=== PATIENT | male | born 1955 | race Caucasian/White ===

== ENCOUNTER 2017-06-22 11:33 | Emergency (ER) | payer MEDICARE ==
[~2017-06-22 11:33] MED LIST: ABAC1TAB3 PO; CLIN150C14 PO; MUPI2OIN TOPICAL
[2017-06-22 11:35] VITALS: BP 131/69; PULSE 125; RESP 14; TEMP 98.4; O2SAT 100
[2017-06-22] MEDS ORDERED: TETANUS/DIPHTHERIA TOXOID ADULT 0.5 ML VIAL IM ONE (12:15)
[2017-06-22] MEDS ORDERED: ONDANSETRON HCL 4 MG/2 ML VIAL IV PUSH ONE (12:15)
[2017-06-22] MEDS ORDERED: MORPHINE SULFATE 4 MG/ML INJ IV PUSH ONE (12:15)
[2017-06-22] MEDS ORDERED: VANCOMYCIN INJ 1,000 MG in SODIUM CHLOR 0.9% 250 ML INJ 250 ML IV STA (12:26)
[2017-06-22] MEDS ORDERED: PIPERACIL-TAZO 4.5 GM PREMIX 100 ML IV STA (12:26)
--- NOTE | 2017-06-22 12:32 | PD ---
Physical Exam Date Seen by Provider: Jun 22, 2017 Narrative This patient presents with a large skin ulceration on his left lower leg. It just started a few days ago. Data Data Last Documented VS Vital Signs Date Time Temp Pulse Resp B/P (MAP) Pulse Ox O2 Delivery O2 Flow Rate FiO2 06/22/17 11:35 98.4 125 14 131/69 (89) 100 Room Air Orders Orders Complete Blood Count With Diff (06/22/17 12:09) Comprehensive Metabolic Panel (06/22/17 12:09) Lactic Acid Sepsis Protocol (06/22/17 12:09) Blood Culture (06/22/17 12:09) Iv Access Insert/Monitor (06/22/17 12:09) Wound Culture And Gram Stain (06/22/17 12:09) Morphine Inj (Morphine Inj) (06/22/17 12:15) Ondansetron Inj (Zofran Inj) (06/22/17 12:15) Tetanus/Diphtheria Tox Adult (Tetanus/Di (06/22/17 12:15) Piperacil-Tazo 4.5 Gm Premix (Zosyn 4.5 (06/22/17 12:26) Vancomycin Inj (Vancomycin Inj) (06/22/17 12:26) MDM Supervised Visit with ZENIA: Yes Narrative Course I, Dr. Lozada, have reviewed the advance practice practitioner's documentation and am in agreement, met with the patient face to face, made the diagnosis, and the medical decision making was done by me. *My assessment and Findings: Large, soupy ulcerative lesion on the left lower extremity. He has several other smaller ulcerative lesions scattered over his body. Septic workup is in process. He is empirically being treated with Zosyn and vancomycin. He is asking to go home. We will obtain his lab results and then revisit this request. He does seem like a reliable patient. Please see Kimberly Muro NP's note for results of laboratory and radiographic evaluation, ED course, final diagnosis and disposition Tabatha Lozada MD Jun 22, 2017 12:32
--- NOTE | 2017-06-22 12:57 | PD ---
HPI Chief Complaint: Skin Problem Time Seen by Provider: 12:00 Travel History International Travel<30 days: No Contact w/Intl Traveler<30days: No Traveled to known affect area: No History of Present Illness HPI 61-year-old male presents to the emergency department with complaint of a wound to his left lower leg that started on Monday and has worsened. He called to get a appointment at [facility] and they could not see him until Monday. He said the area started out as little pimples and has worsened. He has other areas on his body that started at the same way, but have not gotten as bad. He denies fever, vomiting. Unknown tetanus status. Rates pain 10/10. Worse with standing. Has been taking ibuprofen with good relief of pain. Describes as a throbbing sensation. Primary care provider is [facility]. Allergies to sulfa. History of diabetes type 2 and is diet controlled. History of HIV. Has no other medical complaints. No other modifying factors or associated signs and symptoms. PFSH Past Medical History Blood Disorders: No Anxiety: Yes Depression: No Heart Rhythm Problems: No Cancer: No Cardiac Catheterization: No Cardiovascular Problems: Yes High Cholesterol: Yes Chest Pain: Yes Congestive Heart Failure: No Diabetes: Yes Patient Takes Glucophage: No Endocrine: Yes Genitourinary: Yes (KIDNEY DISEASE) Immune Disorder: Yes (HIV) Musculoskeletal: No Neurologic: No Psychiatric: Yes Reproductive: No Respiratory: No Past Surgical History Coronary Artery Bypass Graft: No Other Surgery: Yes (TUNNEL CATHETER SX; FISTULA SX) Family History Family Myocardial Infarction: Yes Social History Alcohol Use: Yes (OCC BEER) Tobacco Use: No Substance Use: No Allergies-Medications (Allergen,Severity, Reaction): Coded Allergies: Sulfa (Sulfonamide Antibiotics) (Verified Allergy, Unknown, 05/03/17) Reported Meds & Prescriptions Reported Meds & Active Scripts Active Doxycycline Hyclate 100 Mg Cap 100 Mg PO BID 14 Days Ibuprofen 800 Mg Tab 800 Mg PO Q6HR PRN Reported Triumeq (Ymkclpwd-Tskajagxoqsw-Swgynywecw) 600-50-300 Mg Tab 1 Tab PO DAILY Hazardous agent; use appropriate precautions for handling & disposal. Review of Systems Except as stated in HPI: all other systems reviewed are Neg Physical Exam Narrative GENERAL: Well-nourished, well-developed male patient, in no acute distress SKIN: Warm and dry. Left lower anterior/medial vu with large skin ulceration measuring approx 12cm x 11cm. HEAD: Atraumatic. Normocephalic. EYES: Pupils equal and round. No scleral icterus. No injection or drainage. ENT: Mucosa pink and moist. Airway patent. NECK: Trachea midline. CARDIOVASCULAR: Regular rate and rhythm. No murmur appreciated. RESPIRATORY: No accessory muscle use. Breath sounds clear and equal bilaterally. No retractions or tachypnea. GASTROINTESTINAL: Abdomen soft, non-tender, nondistended. Positive bowel sounds. No hepato-splenomegaly, or palpable masses. No guarding. MUSCULOSKELETAL: No obvious deformities. No clubbing. No cyanosis. No edema. NEUROLOGICAL: Awake and alert. Oriented 3. No obvious cranial nerve deficits. Motor grossly within normal limits. Normal speech. PSYCHIATRIC: Appropriate mood and affect; insight and judgment normal. Data Data Last Documented VS Vital Signs Date Time Temp Pulse Resp B/P (MAP) Pulse Ox O2 Delivery O2 Flow Rate FiO2 06/22/17 11:35 98.4 125 14 131/69 (89) 100 Room Air Orders Orders Complete Blood Count With Diff (06/22/17 12:09) Comprehensive Metabolic Panel (06/22/17 12:09) Lactic Acid Sepsis Protocol (06/22/17 12:09) Blood Culture (06/22/17 12:09) Iv Access Insert/Monitor (06/22/17 12:09) Wound Culture And Gram Stain (06/22/17 12:09) Morphine Inj (Morphine Inj) (06/22/17 12:15) Ondansetron Inj (Zofran Inj) (06/22/17 12:15) Tetanus/Diphtheria Tox Adult (Tetanus/Di (06/22/17 12:15) Piperacil-Tazo 4.5 Gm Premix (Zosyn 4.5 (06/22/17 12:26) Vancomycin Inj (Vancomycin Inj) (06/22/17 12:26) Ketorolac Inj (Toradol Inj) (06/22/17 13:30) Wound Care (06/22/17 14:27) Ed Discharge Order (06/22/17 14:28) Labs Laboratory Tests Test 06/22/17 12:30 White Blood Count 8.0 TH/MM3 Red Blood Count 3.68 MIL/MM3 Hemoglobin 11.7 GM/DL Hematocrit 34.0 % Mean Corpuscular Volume 92.4 FL Mean Corpuscular Hemoglobin 31.8 PG Mean Corpuscular Hemoglobin Concent 34.4 % Red Cell Distribution Width 14.1 % Platelet Count 188 TH/MM3 Mean Platelet Volume 6.9 FL Neutrophils (%) (Auto) 73.2 % Lymphocytes (%) (Auto) 15.0 % Monocytes (%) (Auto) 10.4 % Eosinophils (%) (Auto) 0.8 % Basophils (%) (Auto) 0.6 % Neutrophils # (Auto) 5.8 TH/MM3 Lymphocytes # (Auto) 1.2 TH/MM3 Monocytes # (Auto) 0.8 TH/MM3 Eosinophils # (Auto) 0.1 TH/MM3 Basophils # (Auto) 0.0 TH/MM3 CBC Comment DIFF FINAL Differential Comment Blood Urea Nitrogen 22 MG/DL Creatinine 2.07 MG/DL Random Glucose 85 MG/DL Total Protein 7.8 GM/DL Albumin 2.4 GM/DL Calcium Level 8.7 MG/DL Alkaline Phosphatase 86 U/L Aspartate Amino Transf (AST/SGOT) 16 U/L Alanine Aminotransferase (ALT/SGPT) 9 U/L Total Bilirubin 0.3 MG/DL Sodium Level 133 MEQ/L Potassium Level 3.6 MEQ/L Chloride Level 106 MEQ/L Carbon Dioxide Level 18.7 MEQ/L Anion Gap 8 MEQ/L Estimat Glomerular Filtration Rate 33 ML/MIN Lactic Acid Level 1.1 mmol/L MDM Medical Decision Making Medical Screen Exam Complete: Yes Emergency Medical Condition: Yes Medical Record Reviewed: Yes Differential Diagnosis Skin ulceration, abscess, MRSA, staph infection, cellulitis Narrative Course 61-year-old male presents to the emergency department with an infected ulceration, wound to the left lower leg. Tetanus updated in the ER. CBC, BMP, lactic acid, normal saline bolus, IV, morphine, Zofran ordered. Dr. Lozada evaluated the patient and ordered IV vancomycin and Zosyn; he does not want to be admitted to the hospital; Dr. Lozada is okay with him being discharged as long as his labs are unremarkable and to the patient follows up in 1 day for wound recheck and IV antibiotics. 1328: CBC unremarkable. Sodium 133, otherwise CMP unremarkable. Lactic acid 1.1. I discussed my findings with Dr. jha, my attending physician, and she agrees the patient is stable for discharge. Wound care provided. I discussed intensely with the patient to return to the emergency department tomorrow for wound recheck and IV antibiotics and he agreed. He said he would definitely be back tomorrow for follow-up. Dr. Lozada and I did review his past visit and he had wounds on his hands that were susceptible to doxycycline; doxycycline was prescribed for home. The patient was given strict return instructions. He was also given a coupon for doxycycline and he says he is going to fill his prescription immediately. Instructed patient to follow up with primary care provider. Patient verbalizes understanding and agreement with treatment plan. Patient is medically cleared and stable for discharge. Discussed reasons to return to the emergency department. Patient agrees with treatment plan. The patients vital signs are stable and the patient is stable for outpatient follow- up and treatment. Patient discharged home, stable and in no acute distress. Diagnosis Primary Impression: Open wound of left lower leg Qualified Codes: S81.802A - Unspecified open wound, left lower leg, initial encounter Additional Impression: Wound infection Referrals: [facility] Primary Care Physician Patient Instructions: General Instructions, Wound Infection (ED) Additional Instructions: Take antibiotics as prescribed Return to the emergency department on June 23 for IV antibiotics and wound recheck Med/Other Pt SpecificInfo: Prescription(s) given Scripts Doxycycline Hyclate (Doxycycline Hyclate) 100 Mg Cap 100 MG PO BID for Infection for 14 Days, #28 CAP 0 Refills Prov: Kimberly Muro 06/22/17 Ibuprofen (Ibuprofen) 800 Mg Tab 800 MG PO Q6HR Y for PAIN, #30 TAB 0 Refills Prov: Kimberly Muro 06/22/17 Disposition: 01 DISCHARGE HOME Condition: Stable Kimberly Muro Jun 22, 2017 12:57
[2017-06-22 12:58] LABS: AUTOMATED NEUTROPHIL # 5.8 TH/MM3 (1.8-7.7); BASOPHIL % 0.6 % (0.0-2.0); EOSINOPHIL # 0.1 TH/MM3 (0-0.4); EOSINOPHIL % 0.8 % (0.0-4.0); HEMOGLOBIN 11.7 GM/DL (13.0-17.0); LYMPHOCYTE # 1.2 TH/MM3 (1.0-4.8); MEAN CELL VOLUME 92.4 FL (80.0-100.0); MEAN CORPUSCULAR HEMOGLOBIN 31.8 PG (27.0-34.0); MEAN CORPUSCULAR HGB CONC 34.4 % (32.0-36.0); MEAN PLATELET VOLUME 6.9 FL (7.0-11.0); MONO % 10.4 % (0.0-8.0); MONOCYTE # 0.8 TH/MM3 (0-0.9); NEUT % 73.2 % (16.0-70.0); PLATELET COUNT 188 TH/MM3 (150-450); RED BLOOD COUNT 3.68 MIL/MM3 (4.50-5.90); RED CELL DISTRIBUTION WIDTH 14.1 % (11.6-17.2)
[2017-06-22 13:20] LABS: ALBUMIN 2.4 GM/DL (3.4-5.0); AST (GOT) 16 U/L (15-37); BICARBONATE 18.7 MEQ/L (21.0-32.0); BLOOD UREA NITROGEN 22 MG/DL (7-18); CALCIUM 8.7 MG/DL (8.5-10.1); CHLORIDE 106 MEQ/L (98-107); CREATININE 2.07 MG/DL (0.60-1.30); GLOMERULAR FILTRATION RATE 33 ML/MIN (>89); GLUCOSE,RANDOM 85 MG/DL (74-106); SODIUM (NA) 133 MEQ/L (136-145)
[2017-06-22 13:21] LABS: ALT (GPT) 9 U/L (12-78)
[2017-06-22 13:24] LABS: ALKALINE PHOSPHATASE 86 U/L (45-117); TOTAL BILIRUBIN ADULT 0.3 MG/DL (0.2-1.0); TOTAL PROTEIN 7.8 GM/DL (6.4-8.2)
[2017-06-22] MEDS ORDERED: KETOROLAC TROMETHAMINE 30 MG/ML (IVP) VIAL IV PUSH ONE (13:30)
[2017-06-22] MEDS ORDERED: IBUP1TAB7 PO (14:26)
[2017-06-22] MEDS ORDERED: DOXY100C PO (14:26)
[2017-06-22 15:31] VITALS: BP 128/68
== END 2017-06-22 15:42 | disposition home or self-care (01) ==
LOC: NEPD 11:33
DX: S81.802A Unspecified open wound, left lower leg, initial encounter (principal); X58.XXXA Exposure to other specified factors, initial encounter; Z21 Asymptomatic human immunodeficiency virus [HIV] infection status; Z23 Encounter for immunization
CPT/HCPCS: 80053; 83605; 85025; 86403; 87040; 87070; 87077; 87186; 87205; 90471; 90714; 96365; 96367; 96375; 99284; J1885; J2270; J2405; J2543; J3370; J7050

== ENCOUNTER 2017-06-23 11:36 | Observation (INO) | payer MEDICARE ==
[~2017-06-23] VITALS: Ht 170.2 cm; Wt 61.5 kg
[~2017-06-23 11:36] MED LIST changes: -CLIN150C14 PO; +DOXY100C PO; +IBUP1TAB7 PO; -MUPI2OIN TOPICAL
[2017-06-23 11:37] VITALS: BP 133/76; PULSE 112; RESP 18; TEMP 98.3; O2SAT 100
--- NOTE | 2017-06-23 13:56 | PD ---
HPI Chief Complaint: Wound/Suture/Staple Re-Check Time Seen by Provider: 13:38 Travel History International Travel<30 days: No Contact w/Intl Traveler<30days: No Traveled to known affect area: No History of Present Illness HPI 61-year-old male presents to the emergency department with complaint of a wound to his left lower leg that started on Monday and has worsened. I saw this patient yesterday in the emergency department and advised him to return today for wound recheck and IV antibiotics. The patient is now excepting that he needs to be admitted to the hospital for continued IV antibiotics and wound care. He denies any change since yesterday. Denies fever, vomiting. Reports decreased appetite. His tetanus was updated yesterday in the ER. I copied a recall of my HPI from yesterday and it stated "he called to get a appointment at [facility] and they could not see him until Monday. He said the area started out as little pimples and has worsened. He has other areas on his body that started at the same way, but have not gotten as bad." Rates pain 10/ 10. Worse with standing. Has been taking ibuprofen with good relief of pain; last taken last night. Describes as a throbbing sensation. Primary care provider is [facility]. Allergies to sulfa. History of diabetes type 2 and is diet controlled. History of HIV. Has no other medical complaints. No other modifying factors or associated signs and symptoms. PFSH Past Medical History Blood Disorders: No Anxiety: Yes Depression: No Heart Rhythm Problems: No Cancer: No Cardiac Catheterization: No Cardiovascular Problems: Yes High Cholesterol: Yes Chest Pain: Yes Congestive Heart Failure: No Diabetes: Yes Endocrine: Yes Genitourinary: Yes (KIDNEY DISEASE) Immune Disorder: Yes (HIV) Musculoskeletal: No Neurologic: No Psychiatric: Yes Reproductive: No Respiratory: No Past Surgical History Coronary Artery Bypass Graft: No Other Surgery: Yes (TUNNEL CATHETER SX; FISTULA SX) Social History Alcohol Use: Yes (OCC BEER) Tobacco Use: No Substance Use: No Allergies-Medications (Allergen,Severity, Reaction): Coded Allergies: Sulfa (Sulfonamide Antibiotics) (Verified Allergy, Unknown, 06/23/17) Reported Meds & Prescriptions Reported Meds & Active Scripts Active Doxycycline Hyclate 100 Mg Cap 100 Mg PO BID 14 Days Ibuprofen 800 Mg Tab 800 Mg PO Q6HR PRN Reported Triumeq (Uvjlbwzz-Wvjwhziskwud-Lsbiirhrsp) 600-50-300 Mg Tab 1 Tab PO DAILY Hazardous agent; use appropriate precautions for handling & disposal. Review of Systems Except as stated in HPI: all other systems reviewed are Neg Physical Exam Narrative GENERAL: Well-nourished, well-developed male patient, in no acute distress SKIN: Warm and dry. Left lower anterior/medial vu with large skin ulceration measuring approx 12cm x 11cm; with signs of infection, but minimal improved since yesterday noted; minimal surrounding erythema as compared to yesterday. HEAD: Atraumatic. Normocephalic. EYES: Pupils equal and round. No scleral icterus. No injection or drainage. ENT: Mucosa pink and moist. Airway patent. NECK: Trachea midline. CARDIOVASCULAR: Regular rate. RESPIRATORY: No accessory muscle use. GASTROINTESTINAL: Flat. MUSCULOSKELETAL: No obvious deformities. No clubbing. No cyanosis. No edema. NEUROLOGICAL: Awake and alert. Oriented 3. No obvious cranial nerve deficits. Motor grossly within normal limits. Normal speech. PSYCHIATRIC: Appropriate mood and affect; insight and judgment normal. Data Data Last Documented VS Vital Signs Date Time Temp Pulse Resp B/P (MAP) Pulse Ox O2 Delivery O2 Flow Rate FiO2 06/23/17 14:53 89 15 118/66 (83) 100 Room Air 06/23/17 11:37 98.3 Orders Orders Basic Metabolic Panel (Bmp) (06/23/17 14:56) Complete Blood Count With Diff (06/23/17 14:56) Iv Access Insert/Monitor (06/23/17 14:56) Sodium Chlor 0.9% 1000 Ml Inj (Ns 1000 M (06/23/17 14:56) Sodium Chloride 0.9% Flush (Ns Flush) (06/23/17 15:00) Ketorolac Inj (Toradol Inj) (06/23/17 15:00) Vancomycin Inj (Vancomycin Inj) (06/23/17 15:00) Piperacil-Tazo 2.25 Gm Premix (Zosyn 2.2 (06/23/17 15:00) Wound Care (06/23/17 15:00) Admit Order (Ed Use Only) (06/23/17 16:08) Labs Laboratory Tests Test 06/23/17 15:19 White Blood Count 7.1 TH/MM3 Red Blood Count 3.54 MIL/MM3 Hemoglobin 11.2 GM/DL Hematocrit 32.9 % Mean Corpuscular Volume 92.8 FL Mean Corpuscular Hemoglobin 31.6 PG Mean Corpuscular Hemoglobin Concent 34.1 % Red Cell Distribution Width 14.8 % Platelet Count 215 TH/MM3 Mean Platelet Volume 8.0 FL Neutrophils (%) (Auto) 53.9 % Lymphocytes (%) (Auto) 27.7 % Monocytes (%) (Auto) 13.9 % Eosinophils (%) (Auto) 3.5 % Basophils (%) (Auto) 1.0 % Neutrophils # (Auto) 3.8 TH/MM3 Lymphocytes # (Auto) 2.0 TH/MM3 Monocytes # (Auto) 1.0 TH/MM3 Eosinophils # (Auto) 0.2 TH/MM3 Basophils # (Auto) 0.1 TH/MM3 CBC Comment DIFF FINAL Differential Comment Blood Urea Nitrogen 20 MG/DL Creatinine 2.10 MG/DL Random Glucose 73 MG/DL Calcium Level 8.4 MG/DL Sodium Level 134 MEQ/L Potassium Level 4.9 MEQ/L Chloride Level 108 MEQ/L Carbon Dioxide Level 21.2 MEQ/L Anion Gap 5 MEQ/L Estimat Glomerular Filtration Rate 32 ML/MIN MDM Medical Decision Making Medical Screen Exam Complete: Yes Emergency Medical Condition: Yes Medical Record Reviewed: Yes Differential Diagnosis Skin ulceration, wound infection, MRSA, staph infection Narrative Course This is a 61-year-old male who I saw yesterday with an open wound to his left lower leg and infection. His labs were checked yesterday and they were unremarkable. He did not want to stay in the hospital yesterday for continued IV antibiotics and wound care, so he was discharged home with a gradients of my attending physician at that time. The patient is in agreement for admission at this time. He has no worsening of symptoms. He is afebrile and nontoxic- appearing. He denies fever vomiting. CBC, BMP, IV, normal saline bolus, vancomycin 1 g, Zosyn, Toradol ordered. Call placed to [facility] for patient admission. 1609: I spoke with Dr. Andrew and report given for patient admission. I spoke with Dr. Andrew and report was given for patient admission. Physician Communication Physician Communication PREMA Cam Diagnosis Primary Impression: Open wound of left lower leg Qualified Codes: S81.802D - Unspecified open wound, left lower leg, subsequent encounter Additional Impression: Wound infection Admitting Information Admitting Physician Requests: Observation Kimberly Muro Jun 23, 2017 13:56
[2017-06-23 14:53] VITALS: BP 118/66; PULSE 89; RESP 15; O2SAT 100
[2017-06-23] MEDS ORDERED: SODIUM CHLOR 0.9% 1000 ML INJ 1,000 ML IV SCH (14:56)
[2017-06-23] MEDS ORDERED: SODIUM CHLORIDE 0.9% FLUSH 10 ML FLUSH IV FLUSH PRN ×2 (15:00→18:00)
[2017-06-23] MEDS ORDERED: KETOROLAC TROMETHAMINE 30 MG/ML (IVP) VIAL IVP ONE (15:00)
[2017-06-23] MEDS ORDERED: PIPERACIL-TAZO 2.25 GM PREMIX 50 ML IV ONE (15:00)
[2017-06-23] MEDS ORDERED: VANCOMYCIN INJ 1,000 MG in SODIUM CHLOR 0.9% 250 ML INJ 250 ML IV ONE (15:00)
[2017-06-23 15:49] LABS: AUTOMATED NEUTROPHIL # 3.8 TH/MM3 (1.8-7.7); BASOPHIL # 0.1 TH/MM3 (0-0.2); EOSINOPHIL # 0.2 TH/MM3 (0-0.4); EOSINOPHIL % 3.5 % (0.0-4.0); HEMATOCRIT 32.9 % (39.0-51.0); HEMOGLOBIN 11.2 GM/DL (13.0-17.0); LYMPH % 27.7 % (9.0-44.0); MEAN CELL VOLUME 92.8 FL (80.0-100.0); MEAN CORPUSCULAR HEMOGLOBIN 31.6 PG (27.0-34.0); MEAN CORPUSCULAR HGB CONC 34.1 % (32.0-36.0); MONO % 13.9 % (0.0-8.0); NEUT % 53.9 % (16.0-70.0); PLATELET COUNT 215 TH/MM3 (150-450); RED BLOOD COUNT 3.54 MIL/MM3 (4.50-5.90); RED CELL DISTRIBUTION WIDTH 14.8 % (11.6-17.2); WHITE BLOOD COUNT 7.1 TH/MM3 (4.0-11.0)
[2017-06-23 16:23] LABS: BICARBONATE 21.2 MEQ/L (21.0-32.0); CALCIUM 8.4 MG/DL (8.5-10.1); CREATININE 2.1 MG/DL (0.60-1.30)
[2017-06-23] MEDS ORDERED: LACTULOSE SYRUP 20 GM/30 ML CUP PO PRN (18:00)
[2017-06-23] MEDS ORDERED: NALOXONE HCL 0.4 MG/ML AMP IV PUSH PRN (18:00)
[2017-06-23] MEDS ORDERED: ONDANSETRON HCL 4 MG/2 ML VIAL IVP PRN (18:00)
[2017-06-23] MEDS ORDERED: BISACODYL 10 MG SUPP RECTAL PRN (18:00)
[2017-06-23] MEDS ORDERED: SENNOSIDES 8.6 MG TAB PO PRN (18:00)
[2017-06-23] MEDS ORDERED: MAGNESIUM HYDROXIDE SUSP 30 ML CUP PO PRN (18:00)
[2017-06-23 18:22] VITALS: BP 120/86
--- NOTE | 2017-06-23 18:27 | HHI.HP ---
HPI Service [facility] Primary Care Physician No Primary Care Physician Admission Diagnosis left lower leg skin ulceration; wound infection Diagnoses: Travel History International Travel<30 Days: No Contact w/Intl Traveler <30 Da: No Traveled to Known Affected Are: No History of Present Illness Patient is a 61-year-old male with past medical history of HIV, CKD presented to the emergency room with worsening wounds. He came yesterday however was seen in the ED but decided not to get admitted. He went home and his pain got worse and he decided to come in today for further evaluation and treatment. He states that late last month he developed multiple blisters mainly on his hands he was prescribed antibiotics and had done better. Then a week ago he developed new ones however they seem to be resistant to the antibiotics and progressively got larger. He developed 2 in his arms, 2 in his thighs, and one in his lower left lower extremity. They are extremely painful 10/10 and pain meds are now helping and they are draining. Denies any fevers or chills, nausea or vomiting, chest pain or shortness of breath, abdominal pain, burning with urination or increased urinary frequency. He denies scratching himself, denies being around sick people with similar symptoms. Per ER documentation patient was seen on 06/22/17 and received a dose of vancomycin and Zosyn. Patient was given a prescription for doxycycline however he was instructed to come back today for further antibiotics. Apparently patient tried to call the [facility] but they could not see him until Monday. Per my discussion w ER, pt's wound do seem improved after receiving vanc and zosyn IV from yesterday Review of Systems Except as stated in HPI: all other systems reviewed are Neg Past Family Social History Past Medical History CKD (he is to be on dialysis however his kidney function came back and no longer is on dialysis), HIV Past Surgical History Fistula placement Reported Medications Reported Meds & Active Scripts Active Doxycycline Hyclate 100 Mg Cap 100 Mg PO BID 14 Days Ibuprofen 800 Mg Tab 800 Mg PO Q6HR PRN Reported Triumeq (Dqvqvsve-Nlmklccxhyoe-Hhagqvoyhn) 600-50-300 Mg Tab 1 Tab PO DAILY Hazardous agent; use appropriate precautions for handling & disposal. Allergies: Coded Allergies: Sulfa (Sulfonamide Antibiotics) (Verified Allergy, Unknown, 06/23/17) Family History Father had lots of health problems and that at age of 92 (patient would not elaborate). Mother was healthy Social History Quit smoking 6 years ago. Used to smoke half a pack to a pack a day. Denies any illegal drug use. Denies drinking any alcohol, used to drink socially but quit once he had CKD Physical Exam Vital Signs Vital Signs Date Time Temp Pulse Resp B/P (MAP) Pulse Ox O2 Delivery O2 Flow Rate FiO2 06/23/17 18:22 80 15 120/86 (97) 100 06/23/17 14:53 89 15 118/66 (83) 100 Room Air 06/23/17 11:37 98.3 112 18 133/76 (95) 100 Room Air Physical Exam GENERAL: This is a well-nourished, well-developed patient, eating dinner SKIN: Multiple open wounds on his hands (those seems to be drying up), arms, Left lower anterior/medial vu with large skin ulceration measuring approx 12cm x 11cm concerning for infection. HEAD: Atraumatic. Normocephalic. No temporal or scalp tenderness. EYES: Pupils equal round and reactive. Extraocular motions intact. ENT: Nose without drainage. Airway patent. NECK: Trachea midline. CARDIOVASCULAR: Regular rate and rhythm without murmurs RESPIRATORY: Clear to auscultation. Breath sounds equal bilaterally. No wheezes GASTROINTESTINAL: Abdomen soft, non-tender, nondistended. No hepato-splenomegaly , or palpable masses. No guarding. MUSCULOSKELETAL: Extremities without clubbing, cyanosis, or edema. No joint tenderness, effusion, or edema noted. No calf tenderness. Negative Homans sign bilaterally. NEUROLOGICAL: Awake and alert. Cranial nerves II through XII intact. Motor and sensory grossly within normal limits. Five out of 5 muscle strength in all muscle groups. Normal speech. Laboratory Laboratory Tests Test 06/23/17 15:19 White Blood Count 7.1 Red Blood Count 3.54 Hemoglobin 11.2 Hematocrit 32.9 Mean Corpuscular Volume 92.8 Mean Corpuscular Hemoglobin 31.6 Mean Corpuscular Hemoglobin Concent 34.1 Red Cell Distribution Width 14.8 Platelet Count 215 Mean Platelet Volume 8.0 Neutrophils (%) (Auto) 53.9 Lymphocytes (%) (Auto) 27.7 Monocytes (%) (Auto) 13.9 Eosinophils (%) (Auto) 3.5 Basophils (%) (Auto) 1.0 Neutrophils # (Auto) 3.8 Lymphocytes # (Auto) 2.0 Monocytes # (Auto) 1.0 Eosinophils # (Auto) 0.2 Basophils # (Auto) 0.1 CBC Comment DIFF FINAL Differential Comment Blood Urea Nitrogen 20 Creatinine 2.10 Random Glucose 73 Calcium Level 8.4 Sodium Level 134 Potassium Level 4.9 Chloride Level 108 Carbon Dioxide Level 21.2 Anion Gap 5 Estimat Glomerular Filtration Rate 32 Result Diagram: 06/23/17 1519 06/23/17 1519 Caprini VTE Risk Assessment Caprini VTE Risk Assessment: Mod/High Risk (score >= 2) Caprini Risk Assessment Model Point Value = 1 Point Value = 2 Point Value = 3 Point Value = 5 Age 41-60 Minor surgery BMI > 25 kg/m2 Swollen legs Varicose veins or History of unexplained or recurrent spontaneous Oral contraceptives or hormone replacement Sepsis (< 1 month) Serious lung disease, including pneumonia (< 1 month) Abnormal pulmonary function Acute myocardial infarction Congestive heart failure (< 1 month) History of inflammatory bowel disease Medical patient at bed rest Age 61-74 Arthroscopic surgery Major open surgery (> 45 min) Laparoscopic surgery (> 45 min) Malignancy Confined to bed (> 72 hours) Immobilizing plaster cast Central venous access Age >= 75 History of VTE Family history of VTE Factor V Leiden Prothrombin [id number] Lupus anticoagulant Anticardiolipin antibodies Elevated serum homocysteine Heparin-induced thrombocytopenia Other congenital or acquired thrombophilia Stroke (< 1 month) Elective arthroplasty Hip, pelvis, or leg fracture Acute spinal cord injury (< 1 month) Prophylaxis Regimen Total Risk Factor Score Risk Level Prophylaxis Regimen 0-1 Low Early ambulation 2 Moderate Order ONE of the following: *Sequential Compression Device (SCD) *Heparin 5000 units SQ BID 3-4 Higher Order ONE of the following medications: *Heparin 5000 units SQ TID *Enoxaparin/Lovenox 40 mg SQ daily (WT < 150 kg, CrCl > 30 mL/min) *Enoxaparin/Lovenox 30 mg SQ daily (WT < 150 kg, CrCl > 10-29 mL/min) *Enoxaparin/Lovenox 30 mg SQ BID (WT < 150 kg, CrCl > 30 mL/min) AND/OR *Sequential Compression Device (SCD) 5 or more Highest Order ONE of the following medications: *Heparin 5000 units SQ TID (Preferred with Epidurals) *Enoxaparin/Lovenox 40 mg SQ daily (WT < 150 kg, CrCl > 30 mL/min) *Enoxaparin/Lovenox 30 mg SQ daily (WT < 150 kg, CrCl > 10-29 mL/min) *Enoxaparin/Lovenox 30 mg SQ BID (WT < 150 kg, CrCl > 30 mL/min) AND *Sequential Compression Device (SCD) Assessment and Plan Assessment and Plan cellulitis w opened wounds: wound cx from 06/22/17 growing group A strep. Started pt on zosyn and will add clinda. Pt already received a dose of IV zosyn and vanco today. Pt's Cr is 2.10. Pt has baseline CKD. monitor Cr levels closely. Pt did require HD in the past. I will hold off on continuing the vanco at this time. Pt did get a dose of zosyn and vanc IV yesterday as well. blood cx from yesterday neg x 1 day. Pt presents w no fevers or leukocytosis. Monitor closely. pain control w norco prn and IV morphine prn. stool softeners in place. ID consult placed for further recs and length of abx. Appreciate assistance. Mild Acute on chronic CKD; Baseline Cr 1.93. today 2.10. give Gentle hydration NS @84ml/hr. Monitor closely as pt was on HD in the past. HIV: resume antiviral meds. DVT proph: heparin Code Status full Discussed Condition With Patient, ER physician Laura Andrew MD Jun 23, 2017 18:27
[2017-06-23] MEDS ORDERED: VANCOMYCIN INJ 1,000 MG in SODIUM CHLOR 0.9% 250 ML INJ 250 ML IV SCH (19:15)
[2017-06-23 19:40] VITALS: BP 109/64; PULSE 84; RESP 15; TEMP 98.1; O2SAT 99
[2017-06-23] MEDS: PIPERACIL-TAZO 3.375 GM PREMIX 50 ML IV SCH (21:27)
[2017-06-23] MEDS: DOCUSATE SODIUM 50 MG/SENNA 8.6 MG TAB PO SCH (21:27)
[2017-06-23] MEDS: SODIUM CHLORIDE 0.9% FLUSH 10 ML FLUSH IV FLUSH SCH (21:27)
[2017-06-23] MEDS: HEPARIN SODIUM - SQ 10,000 UNITS/ML VIAL SQ SCH (21:27)
[2017-06-23] MEDS: SODIUM CHLOR 0.9% 1000 ML INJ 1,000 ML IV SCH (21:28)
[2017-06-23] MEDS: CLINDAMYCIN 600 MG/NS PREMIX 50 ML IV SCH (22:12)
[2017-06-23 23:20] VITALS: BP 106/68; PULSE 76; RESP 18; TEMP 98; O2SAT 94
[2017-06-24 03:47] VITALS: BP 101/61; PULSE 75; RESP 18; TEMP 98.1; O2SAT 95
[2017-06-24] MEDS: PIPERACIL-TAZO 3.375 GM PREMIX 50 ML IV SCH ×3 (05:02→20:21)
[2017-06-24] MEDS: ACETAMINOPHEN/HYDROcodone 325 MG/5 MG TAB PO PRN ×2 (05:09→17:28)
[2017-06-24] MEDS: CLINDAMYCIN 600 MG/NS PREMIX 50 ML IV SCH ×3 (05:47→22:05)
[2017-06-24] MEDS: BACITRACIN/POLYMYXIN B 15 GM TUBE TOPICAL PRN ×2 (05:47→18:00)
[2017-06-24] MEDS: SODIUM CHLOR 0.9% 1000 ML INJ 1,000 ML IV SCH (07:10)
[2017-06-24 07:59] LABS: AUTOMATED NEUTROPHIL # 3.4 TH/MM3 (1.8-7.7); BASOPHIL % 0.6 % (0.0-2.0); EOSINOPHIL # 0.3 TH/MM3 (0-0.4); EOSINOPHIL % 4.8 % (0.0-4.0); HEMATOCRIT 29.7 % (39.0-51.0); HEMOGLOBIN 10.1 GM/DL (13.0-17.0); LYMPH % 24.4 % (9.0-44.0); LYMPHOCYTE # 1.4 TH/MM3 (1.0-4.8); MEAN CELL VOLUME 92.8 FL (80.0-100.0); MEAN CORPUSCULAR HEMOGLOBIN 31.4 PG (27.0-34.0); MEAN CORPUSCULAR HGB CONC 33.8 % (32.0-36.0); MEAN PLATELET VOLUME 6.9 FL (7.0-11.0); MONO % 11.6 % (0.0-8.0); MONOCYTE # 0.7 TH/MM3 (0-0.9); NEUT % 58.6 % (16.0-70.0); PLATELET COUNT 183 TH/MM3 (150-450); RED CELL DISTRIBUTION WIDTH 14.3 % (11.6-17.2); WHITE BLOOD COUNT 5.8 TH/MM3 (4.0-11.0)
[2017-06-24 08:13] VITALS: BP 98/60; PULSE 72; TEMP 97.9; TEMP 98.7; O2SAT 98
[2017-06-24 08:39] LABS: ALKALINE PHOSPHATASE 66 U/L (45-117); ALT (GPT) 9 U/L (12-78); AST (GOT) 15 U/L (15-37); BICARBONATE 18.6 MEQ/L (21.0-32.0); BLOOD UREA NITROGEN 22 MG/DL (7-18); CHLORIDE 113 MEQ/L (98-107); CREATININE 2.25 MG/DL (0.60-1.30); GLOMERULAR FILTRATION RATE 30 ML/MIN (>89); GLUCOSE,RANDOM 104 MG/DL (74-106); SODIUM (NA) 139 MEQ/L (136-145); TOTAL BILIRUBIN ADULT 0.2 MG/DL (0.2-1.0); TOTAL PROTEIN 6.3 GM/DL (6.4-8.2)
[2017-06-24] MEDS: DOCUSATE SODIUM 50 MG/SENNA 8.6 MG TAB PO SCH ×2 (08:55→21:00)
[2017-06-24] MEDS: SODIUM CHLORIDE 0.9% FLUSH 10 ML FLUSH IV FLUSH SCH ×2 (08:56→21:00)
[2017-06-24] MEDS: HEPARIN SODIUM - SQ 10,000 UNITS/ML VIAL SQ SCH ×2 (08:56→22:06)
[2017-06-24] MEDS ORDERED: NON-FORMULARY DRUG (Abacavir-Dolutegravir-Lamivudine (Triumeq) 1 TAB) PO SCH (10:45)
[2017-06-24 12:09] VITALS: BP 100/60; PULSE 60; RESP 20; TEMP 98.2; O2SAT 96
[2017-06-24] MEDS: ABACAVIR SULFATE 300 MG TAB PO SCH (13:09)
[2017-06-24] MEDS: DOLUTEGRAVIR SODIUM 50 MG TAB PO SCH (13:09)
--- NOTE | 2017-06-24 13:34 | HHI.PR ---
Subjective Remarks Follow up wounds. Patient states that the wounds are getting better. No fever/ chills. Denies chest pain, dyspnea. Objective Vitals Vital Signs Date Time Temp Pulse Resp B/P (MAP) Pulse Ox O2 Delivery O2 Flow Rate FiO2 06/24/17 12:09 98.2 60 20 100/60 (73) 96 06/24/17 08:13 97.9 06/24/17 08:13 98.7 72 98/60 (73) 98 06/24/17 06:07 18 06/24/17 03:47 98.1 75 18 101/61 (74) 95 06/23/17 23:20 98.0 76 18 106/68 (81) 94 06/23/17 19:40 98.1 84 15 109/64 (79) 99 06/23/17 18:22 80 15 120/86 (97) 100 06/23/17 14:53 89 15 118/66 (83) 100 Room Air I/O 06/23/17 06/23/17 06/23/17 06/24/17 06/24/17 06/24/17 07:00 15:00 23:00 07:00 15:00 23:00 Intake Total 1300 ml 500 ml Balance 1300 ml 500 ml Intake Oral 500 ml IV Total 1300 ml Result Diagram: 06/24/1772906/24/17729 Objective Remarks General: No acute distress. Heart: Regular rate and rhythm. No murmur. Lungs: Clear to auscultation bilaterally. No wheezes, rales, or rhonchi. Breathing is nonlabored. Abdomen: Soft, nontender, nondistended. Extremities: No lower extremity edema. Multiple wounds bandaged on upper and lower extremities bilaterally, still with drainage. Psych: Alert and oriented. Procedures None Urinary Catheter: No Vascular Central Line Catheter: No A/P Assessment and Plan 1. Cellulitis, wounds: Culture from 06/22/17 growing Group A Strep. Continue antibiotics. Infectious disease consult is pending. 2. Acute kidney injury superimposed on chronic kidney disease stage 3: Continue IV fluids. Monitor BUN/creatinine. 3. HIV: Patient refusing antiviral medications because they are 3 separate pills instead of 1 combination pill. 4. DVT prophylaxis: Heparin. Landon Price MD Jun 24, 2017 13:34
[2017-06-24] MEDS: NS + KCL 20 MEQ INJ 1,000 ML IV SCH (13:37)
[2017-06-24 20:00] VITALS: BP 125/72; PULSE 78; RESP 18; TEMP 98.2; O2SAT 100
--- NOTE | 2017-06-24 20:01 | MB ---
cc: NANNETTE LARSON MD DATE OF CONSULTATION 06/24/[address] Andrew REASON FOR CONSULTATION Multiple open wounds, started off as blisters and progressively worsening. Positive HIV for 30 years. HISTORY OF PRESENT ILLNESS This is a 61-year-old white male who came to the emergency department because of wounds of his extremities. The patient has several wounds over the extremities, with the worst being on the left anterior tibia. He noted onset of these wounds approximately 2 1/2 weeks ago. He was seen in the emergency department initially on May 17 and a wound culture was taken from the hand and it came back with Group B beta strep and staph aureus. He was given clindamycin. The patient returned again to the emergency department on June 22 and, at that time, he had a large skin ulceration on his left lower leg which has begun a few days prior. He also had several smaller ulcerative lesions of the arms and both thighs distally. He was given vancomycin and Zosyn and discharged on doxycycline to be taken for 28 days. The patient came back again for a wound check yesterday. He continues with the wounds which are in various stages of healing. They form ulcerations superficially and then have healing skin which is smooth and slightly pinkish over where the original lesion was located. The patient states that this began as blisters and then with some pus and then lesions dry up and form scabs and then the scab peels off and it heals. He has a history of end-stage renal disease but has not been on dialysis for six months, because his kidneys "recovered". He is on HIV medications which he has taken for a long time. He denies fevers, chills, nausea, vomiting or dysuria. A culture taken on 06/22 of the left lower leg has heavy growth of group A beta strep. Blood cultures were taken and one bottle of four has staph coagulase negative. The patient states that he feels well otherwise. He reports to me that his last CD-4 count was well over 400 and his vi9rus load was around 1200 when measured last. He moved from [place], [place] to [place] about a month ago. He originally is from [place]. The patient reports that the lesions are painful initially and then they have a burning sensation after they start the healing process. PAST MEDICAL HISTORY 1. HIV disease, 2. Chronic kidney disease. The patient previously on hemodialysis, but he was able to come off of hemodialysis six months ago because his kidney function improved. 3. AV fistula ALLERGIES SULFA MEDICATIONS 1. Ziagen 2. Epivir 3. Clindamycin 4. Piperacillin/tazobactam 5. Baker 5 SOCIAL HISTORY The patient quit using tobacco. Occasional beer. No illicit drugs History of IV drug use in the distant past. FAMILY HISTORY Noncontributory. REVIEW OF SYSTEMS Pertinent as mentioned above in history of present illness. Otherwise negative. No fever or chills. PHYSICAL EXAMINATION GENERAL: This is a well-developed male who is in no acute distress. He is awake, alert and oriented. VITAL SIGNS: Temperature 98.2, BP 100/60, respirations 20, heart rate 60. HEENT: Head is atraumatic. Extraocular movements grossly intact, pupils reactive to light. No icterus. Oropharynx moist mucosa without lesions. NECK: Supple without adenopathy. LUNGS: Clear breath sounds HEART: Regular S1 and S2 without murmurs, rubs or gallops. ABDOMEN: Bowel sounds present, soft, nontender. RECTAL: Not performed. EXTREMITIES: The left upper extremity has an AV fistula which is intact. The right arm near the elbow has an ulcerated lesion which is superficial. The dorsum of the right hand at the base of the fingers has an ulcerated clean base glistening lesion as does the left dorsum of the hand at the base of the fingers. The left leg has a large ulcer which has partially scabbed over and is very wet and has purulent exudate. The skin around the ulceration is intact. Ulceration at the upper chest which is well-healed and has a scab overlying. NEUROLOGIC: No gross focal findings. PSYCHIATRIC: The patient is calm and cooperative. LABORATORY DATA Creatinine 2.25, BUN 22, estimated GFR 30, sodium 139. WBC 5.8, platelet count 183, 58% neutrophils, 24% lymphocytes, 11% monocytes, 4% eosinophils. IMPRESSION 1. Ulcers of the skin in patient with HIV disease. Culture of ulcerated lesions has group A beta strep. Blood culture has one bottle with staph coag negative which is very likely contaminant and uninvolved in the current skin presentation. 2. Chronic kidney disease 3. HIV disease. The skin lesions are very likely due to impetigo and the patient is immunocompromised due to HIV disease and therefore it makes it worse. Another possibility would be pyoderma which becomes ___ infected with bacteria. RECOMMENDATIONS If patient continues to be without fever, I think we can switch the antibiotic to Keflex since the sensitivity profile is better for Keflex than it is for doxycycline and the staph aureus which was recovered back on 05/17 was resistant to clindamycin. He can be followed up outpatient with infectious disease, Dr. Rosario. She can also follow up for the HIV disease as well, since he does not have an established infection disease provider or HIV provider in this area. Another option is to have the patient follow up with the wound care center for the wounds. If he continues to have problems with recurrence, a biopsy should be performed as well as to see if this is another entity such as pyoderma. Thank you for this consultation. Nannette Larson MD FD/ /6:08 PM /7:32 PM JALEN
[2017-06-24] MEDS: ACETAMINOPHEN/HYDROcodone 325 MG/10 MG TAB PO PRN (20:12)
[2017-06-25] VITALS (7 sets, daily range): BP systolic 97–122; BP diastolic 58–70; PULSE 65–81; RESP 16–18; TEMP 97.7–98.7; O2SAT 99–100
[2017-06-25] MEDS: NS + KCL 20 MEQ INJ 1,000 ML IV SCH ×2 (00:55→12:50)
[2017-06-25] MEDS: PIPERACIL-TAZO 3.375 GM PREMIX 50 ML IV SCH (03:44)
[2017-06-25] MEDS: CLINDAMYCIN 600 MG/NS PREMIX 50 ML IV SCH (05:16)
[2017-06-25] MEDS: HEPARIN SODIUM - SQ 10,000 UNITS/ML VIAL SQ SCH ×2 (09:04→21:00)
[2017-06-25] MEDS: DOCUSATE SODIUM 50 MG/SENNA 8.6 MG TAB PO SCH ×2 (09:04→21:00)
[2017-06-25] MEDS: ABACAVIR SULFATE 300 MG TAB PO SCH (09:05)
[2017-06-25] MEDS: DOLUTEGRAVIR SODIUM 50 MG TAB PO SCH (09:05)
[2017-06-25] MEDS: SODIUM CHLORIDE 0.9% FLUSH 10 ML FLUSH IV FLUSH SCH ×2 (09:30→21:00)
[2017-06-25] MEDS ORDERED: CEPH500C PO (10:01)
--- NOTE | 2017-06-25 10:21 | HHI.PR ---
Subjective Remarks Follow up wounds. Patient states that he feels better today. He wants to go home. He does not recall what his baseline creatinine is, but states that it is "less than 3". He was on dialysis previously and states that his kidney function improved about 6 months ago. Objective Vitals Vital Signs Date Time Temp Pulse Resp B/P (MAP) Pulse Ox O2 Delivery O2 Flow Rate FiO2 06/25/17 07:37 97.7 79 16 97/64 (75) 100 06/25/17 04:00 98.0 72 16 122/58 (79) 100 06/25/17 00:00 98.7 65 17 112/61 (78) 06/24/17 20:00 98.2 78 18 125/72 (89) 100 06/24/17 12:09 98.2 60 20 100/60 (73) 96 I/O 06/24/17 06/24/17 06/24/17 06/25/17 06/25/17 06/25/17 07:00 15:00 23:00 07:00 15:00 23:00 Intake Total 500 ml 345 ml 360 ml Balance 500 ml 345 ml 360 ml Intake Oral 500 ml 360 ml IV Total 345 ml # Voids 5 1 # Bowel Movements 1 Result Diagram: 06/24/17 0730 06/24/17 0730 Objective Remarks General: No acute distress. Heart: Regular rate and rhythm. No murmur. Lungs: Clear to auscultation bilaterally. No wheezes, rales, or rhonchi. Breathing is nonlabored. Abdomen: Soft, nontender, nondistended. Extremities: No lower extremity edema. Multiple wounds bandaged on upper and lower extremities bilaterally Psych: Alert and oriented. Procedures None Urinary Catheter: No Vascular Central Line Catheter: No A/P Assessment and Plan 1. Cellulitis, wounds: Culture from 06/22/17 growing Group A Strep. Appreciate infectious disease recommendations. Switch to Keflex. 2. Acute kidney injury superimposed on chronic kidney disease stage 3: Continue IV fluids. Monitor BUN/creatinine. Labs are pending today. 3. HIV: Continue antiretrovirals. 4. DVT prophylaxis: Heparin. Discharge Planning Plan for discharge home today pending labs. Landon Price MD Jun 25, 2017 10:21
[2017-06-25] MEDS: CEPHALEXIN MONOHYDRATE 500 MG CAP PO SCH ×2 (12:04→17:54)
[2017-06-25] MEDS: ACETAMINOPHEN/HYDROcodone 325 MG/5 MG TAB PO PRN (12:06)
[2017-06-25 13:37] LABS: BICARBONATE 20.9 MEQ/L (21.0-32.0); CREATININE 2.63 MG/DL (0.60-1.30)
[2017-06-25] MEDS ORDERED: MAGNESIUM CITRATE SOLN 300 ML BTL PO ONE (14:00)
--- NOTE | 2017-06-25 16:13 | MB ---
cc: HAFSA DEL REAL MD DATE OF CONSULTATION: 06/25/2017. REASON FOR CONSULTATION: Acute on chronic renal disease management. HISTORY OF PRESENT ILLNESS: This is a 61-year-old male. He has a prior history of HIV which he has had for over 30 years. He takes antiretrovirals and apparently his last CD-4 count was in the 400 range. The patient also has a previous history of end-stage renal disease on dialysis. He reports he was on dialysis from 2013 to 2017 in [place]. He said he was on dialysis secondary to Truvada which is one of his antiretrovirals. The patient came off dialysis and had been followed up in [place] until he recently moved here one month ago. He reports his baseline creatinine was in the 2 range corresponding chronic kidney disease stage III. The patient presented to the emergency room with presentation of multiple blisters and ulcerations on his hands and legs. The patient was seen with infectious disease. The patient had received vancomycin and Zosyn previously on the emergency room visit here. At this point, infectious disease has switched antibiotics to Keflex p.o. and has continued his antiretroviral medications. At this point, the patient is resting in bed comfortably. His creatinine gradually yvonne here from a level of 2.1 at the time of admission up to a level of 2.6. Several weeks ago at the emergency room visit, he had a creatinine of 1.9 and again his previous creatinine baseline was near 2.0 corresponding to GFR in the 30s. Given his renal issues and previous dialysis history, nephrology was consulted for further evaluation. REVIEW OF SYSTEMS: The patient denies any fevers, chills, no nausea, no vomiting, no diarrhea, no constipation, no dysuria. Otherwise review of systems negative other than presentation with ulcerations. PAST MEDICAL HISTORY: His medical history includes: 1. Chronic kidney disease apparently stage III followed up closely in [place] prior to him moving here one month ago. The patient was previously on hemodialysis from 2013 to 2017 which he attributed to side effects from Truvada. He apparently regained renal function and has been off dialysis since 2017. 2. The patient also has a history of HIV for over thirty years on antiretroviral medications. PAST SURGICAL HISTORY: Left upper arm brachiocephalic fistula, which is still flowing. MEDICATIONS AT HOME: 1. Ibuprofen which the patient was taking daily for approximately two weeks as well as doxycycline. 2. The patient also takes Triumeq for antiretroviral use. ALLERGIES: 1. SULFA ALLERGY. FAMILY HISTORY: Father with multiple health problems who at age 92. The mother was healthy otherwise. SOCIAL HISTORY: The patient quit smoking six years ago. He previously smoked half-a-pack to one pack a day. No drug use or alcohol use. Previous social alcohol use prior to chronic kidney disease. PHYSICAL EXAMINATION: VITAL SIGNS: At the time of evaluation, temperature 98.0, pulse 69, respiratory rate 18, blood pressure 105/65, pulse oximetry 100% on room air. GENERAL: Awake, alert and oriented and in no apparent distress. HEAD, EYES, EARS, NOSE, THROAT: Neck soft supple. CARDIAC: Regular rate and rhythm. PULMONARY: Lungs clear to auscultation bilaterally. ABDOMEN: The abdomen is soft, nontender and nondistended. EXTREMITIES: No edema. Patient with multiple ulcerations on the lower and upper extremities. Patient with left upper extremity AV fistula with positive pulsatile thrill. LABORATORY FINDINGS: Sodium 137, potassium 4.3, chloride 111, bicarb 20.9, BUN 23, creatinine 2.6 with glucose of 86. Initial creatinine was 2.1 at time of his admission. Previous creatinine one month ago was 1.9. The patient had albumin of 2.0, white count 5.8, hemoglobin 10.1, hematocrit 29.7 with platelet count of 183,000. ASSESSMENT AND PLAN: 1. Acute kidney injury on chronic kidney disease stage III: The patient reports he has a baseline creatinine in the 2 range and he has followed closely with nephrology in [place] prior to him moving here one month ago. His baseline creatinine is near 2. He has a GFR of 30 corresponding to chronic kidney disease stage III. He was previously on dialysis from 2013 to 2017 secondary to the side effects from Truvada per the patient and he had regained renal function afterwards. At this point, the patient has some mild acute kidney injury as his creatinine has risen from 2.1 to 2.6. It may be a component of recent NSAID use here as the patient had been taking NSAIDs daily for approximately two weeks due to pain from leg ulcerations. I emphasized to the patient that he should not take NSAIDs any further in the future as this may hurt his renal function. The patient may also have some mild acute kidney injury from recent dosing of Vancomycin as well as Zosyn. At this point, will give a trial of IV fluids, although the patient is relatively euvolemic and tolerating p.o. intake. He may have some third space losses from ongoing ulcerations. In addition, will check a urinalysis. The patient had an albumin level of 2.0 and this may be an element of some malnutrition however I am not sure if he has any ongoing proteinuria which would be consistent with possible HIV nephropathy. The patient does not have a history of diabetes otherwise. Will further check urinalysis and urine electrolytes to further ascertain renal function. Otherwise creatinine is otherwise relatively stable and will continue with a.m. labs. 2. Skin ulcerations. The patient is being seen with infectious disease. Apparent group A Strep and possible impetigo. He has been given Keflex at this point. Continue to monitor and renal dose all medications and antibiotics as needed. 3. HIV. The patient has had HIV for over thirty years and a CD-4 count previously in the 400s. Continue with antiretroviral medications. MD JOSHUA Franco/SHAHRAM /2:23 PM /3:55 PM JALEN
[2017-06-25 16:19] LABS: BILIRUBIN, URINE NEG (NEG); BLOOD, URINE NEG (NEG); GLUCOSE,URINE NEG (NEG); KETONE, URINE NEG (NEG); MUCUS URINE FEW /lpf (OCC); NITRITE,URINE NEG (NEG); SQUAMOUS EPITHELIAL CELL URINE <1 /hpf (0-5); URINE COLOR YELLOW (YELLW/STRAW); URINE LEUKOCYTE ESTERASE NEG (NEG)
[2017-06-25 16:25] LABS: CREATININE, RANDOM URINE 102.3 MG/DL
[2017-06-25] MEDS: ACETAMINOPHEN/HYDROcodone 325 MG/10 MG TAB PO PRN (17:54)
[2017-06-26] MEDS: NS + KCL 20 MEQ INJ 1,000 ML IV SCH ×2 (00:45→12:12)
[2017-06-26] MEDS: CEPHALEXIN MONOHYDRATE 500 MG CAP PO SCH ×3 (00:58→12:12)
[2017-06-26 03:08] VITALS: BP 120/65; PULSE 74; RESP 18; TEMP 98.2; O2SAT 98
[2017-06-26] MEDS: ACETAMINOPHEN/HYDROcodone 325 MG/10 MG TAB PO PRN (06:31)
[2017-06-26 08:09] VITALS: BP 110/65; PULSE 74; RESP 18; TEMP 97.6; O2SAT 99
[2017-06-26] MEDS: SODIUM CHLORIDE 0.9% FLUSH 10 ML FLUSH IV FLUSH SCH (08:17)
[2017-06-26] MEDS: DOCUSATE SODIUM 50 MG/SENNA 8.6 MG TAB PO SCH (08:18)
[2017-06-26] MEDS: DOLUTEGRAVIR SODIUM 50 MG TAB PO SCH (08:18)
[2017-06-26] MEDS: HEPARIN SODIUM - SQ 10,000 UNITS/ML VIAL SQ SCH (08:19)
[2017-06-26] MEDS: ABACAVIR SULFATE 300 MG TAB PO SCH (08:19)
--- NOTE | 2017-06-26 11:13 | HHI.PR ---
Subjective Remarks Follow up wounds, renal failure. Patient has no complaints at this time. He wants to go home. States that his wounds are much better. Objective Vitals Vital Signs Date Time Temp Pulse Resp B/P (MAP) Pulse Ox O2 Delivery O2 Flow Rate FiO2 06/26/17 08:09 97.6 74 18 110/65 (80) 99 06/26/17 03:08 98.2 74 18 120/65 (83) 98 06/25/17 23:09 98.2 74 18 117/66 (83) 99 06/25/17 19:58 98.3 81 18 117/65 (82) 100 06/25/17 15:38 98.0 67 18 113/70 (84) 100 06/25/17 11:55 98.0 69 18 105/65 (78) 100 I/O 06/25/17 06/25/17 06/25/17 06/26/17 06/26/17 06/26/17 07:00 15:00 23:00 07:00 15:00 23:00 # Voids 1 2 3 # Bowel Movements 1 Result Diagram: 06/24/17 0730 06/25/17 1255 Objective Remarks General: No acute distress. Heart: Regular rate and rhythm. No murmur. Lungs: Clear to auscultation bilaterally. No wheezes, rales, or rhonchi. Breathing is nonlabored. Abdomen: Soft, nontender, nondistended. Extremities: No lower extremity edema. Multiple wounds bandaged on upper and lower extremities bilaterally Psych: Alert and oriented. Procedures None Urinary Catheter: No Vascular Central Line Catheter: No A/P Assessment and Plan 1. Cellulitis, wounds: Culture from 06/22/17 growing Group A Strep. Appreciate infectious disease recommendations. Switch to Keflex. 2. Acute kidney injury superimposed on chronic kidney disease stage 3: Continue IV fluids. Creatinine has been increasing. Appreciate nephrology recommendations. Repeat BMP is pending today. Patient does have proteinuria. 3. HIV: Continue antiretrovirals. 4. DVT prophylaxis: Heparin. Discharge Planning Plan for discharge home today pending labs and nephrology clearance. Landon Price MD Jun 26, 2017 11:13
[2017-06-26 12:48] LABS: BICARBONATE 23.1 MEQ/L (21.0-32.0); CALCIUM 8.2 MG/DL (8.5-10.1); CREATININE 2.49 MG/DL (0.60-1.30)
[2017-06-26 13:19] VITALS: BP 131/71; PULSE 73; RESP 18; TEMP 97.6; O2SAT 100
--- NOTE | 2017-06-26 15:17 | HHI.DCPOC ---
Discharge Care Plan Diagnosis: (1) HIV (human immunodeficiency virus infection) (2) Chronic kidney disease (3) Wound infection Goals to Promote Your Health * To prevent worsening of your condition and complications * To maintain your health at the optimal level Directions to Meet Your Goals Take your medications as prescribed Follow your dietary instruction Follow activity as directed Keep your appointments as scheduled Take your immunizations and boosters as scheduled If your symptoms worsen call your PCP, if no PCP go to Urgent Care Center or Emergency Room Smoking is Dangerous to Your Health. Avoid second hand smoke Call the 24-hour hour crisis hotline for domestic abuse at Landon Price MD Jun 26, 2017 15:17
--- NOTE | 2017-06-26 15:35 | HHI.DS ---
Discharge Summary Admission Date Jun 23, 2017 at 16:09 Discharge Date: Jun 26, 2017 Admitting Diagnosis left lower leg skin ulceration; wound infection (1) Wound infection ICD Code: T14.8XXA - Other injury of unspecified body region, initial encounter ; L08.9 - Local infection of the skin and subcutaneous tissue, unspecified Status: Acute (2) Chronic kidney disease ICD Code: N18.9 - Chronic kidney disease, unspecified (3) HIV (human immunodeficiency virus infection) ICD Code: B20 - Human immunodeficiency virus [HIV] disease Procedures None Brief History - From Admission Patient is a 61-year-old male with past medical history of HIV, CKD presented to the emergency room with worsening wounds. He came yesterday however was seen in the ED but decided not to get admitted. He went home and his pain got worse and he decided to come in today for further evaluation and treatment. He states that late last month he developed multiple blisters mainly on his hands he was prescribed antibiotics and had done better. Then a week ago he developed new ones however they seem to be resistant to the antibiotics and progressively got larger. He developed 2 in his arms, 2 in his thighs, and one in his lower left lower extremity. They are extremely painful 10/10 and pain meds are now helping and they are draining. Denies any fevers or chills, nausea or vomiting, chest pain or shortness of breath, abdominal pain, burning with urination or increased urinary frequency. He denies scratching himself, denies being around sick people with similar symptoms. Per ER documentation patient was seen on 06/22/17 and received a dose of vancomycin and Zosyn. Patient was given a prescription for doxycycline however he was instructed to come back today for further antibiotics. Apparently patient tried to call the [facility] but they could not see him until Monday. Per my discussion w ER, pt's wound do seem improved after receiving vanc and zosyn IV from yesterday CBC/BMP: 06/24/17 0730 06/26/17 1112 Significant Findings Laboratory Tests Test 06/24/17 07:30 06/25/17 12:55 2/25/18 15:15 06/26/17 11:12 Red Blood Count 3.20 MIL/MM3 (4.50-5.90) Hemoglobin 10.1 GM/DL (13.0-17.0) Hematocrit 29.7 % (39.0-51.0) Mean Platelet Volume 6.9 FL (7.0-11.0) Monocytes (%) (Auto) 11.6 % (0.0-8.0) Eosinophils (%) (Auto) 4.8 % (0.0-4.0) Blood Urea Nitrogen 22 MG/DL (7-18) 23 MG/DL (7-18) 22 MG/DL (7-18) Creatinine 2.25 MG/DL (0.60-1.30) 2.63 MG/DL (0.60-1.30) 2.49 MG/DL (0.60-1.30) Total Protein 6.3 GM/DL (6.4-8.2) Albumin 2.0 GM/DL (3.4-5.0) Calcium Level 8.0 MG/DL (8.5-10.1) 8.0 MG/DL (8.5-10.1) 8.2 MG/DL (8.5-10.1) Alanine Aminotransferase (ALT/SGPT) 9 U/L (12-78) Chloride Level 113 MEQ/L (98-107) 111 MEQ/L (98-107) 109 MEQ/L (98-107) Carbon Dioxide Level 18.6 MEQ/L (21.0-32.0) 20.9 MEQ/L (21.0-32.0) Estimat Glomerular Filtration Rate 30 ML/MIN (>89) 25 ML/MIN (>89) 27 ML/MIN (>89) Urine Mucus FEW /lpf (OCC) Urine Random Total Protein 63 MG/DL (0-11.8) Urine Protein/Creatinine Ratio 0.62 (0.00-0.14) PE at Discharge General: No acute distress. Heart: Regular rate and rhythm. No murmur. Lungs: Clear to auscultation bilaterally. No wheezes, rales, or rhonchi. Breathing is nonlabored. Abdomen: Soft, nontender, nondistended. Extremities: No lower extremity edema. Multiple wounds bandaged on upper and lower extremities bilaterally Psych: Alert and oriented. Hospital Course The patient was admitted for management of cellulitis and open wounds. She was started on IV antibiotics. Infectious disease was consulted. Patient showed improvement in the cellulitis, wounds. Per infectious disease recommendations, he was transitioned to Keflex. The patient was noted to have increasing creatinine. Nephrology was consulted. Patient was continued on IV fluids. His creatinine was monitored and on the day of discharge, was trending down. He was felt to be stable for discharge home. He was advised to follow-up with PCP, infectious disease, and nephrology. Pt Condition on Discharge: Stable Discharge Disposition: Discharge Home Discharge Time: <= 30 minutes Discharge Instructions DIET: Follow Instructions for: As Tolerated, No Restrictions Activities you can perform: Regular-No Restrictions Follow up Referrals: Infectious Disease - 1 Week with Stefany Rosario MD Nephrology - 1 Week PCP Follow-up - 1 Week New Medications: Cephalexin (Cephalexin) 500 Mg Cap 500 MG PO Q6H for Infection for 7 Days, #28 CAP 0 Refills Continued Medications: Cdrhdalw-Uwfykgushstu-Slbbkvyenw (Triumeq) 600-50-300 Mg Tab 1 TAB PO DAILY for Mgmt Viral Infection, TAB 0 Refills Hazardous agent; use appropriate precautions for handling & disposal. Ibuprofen (Ibuprofen) 800 Mg Tab 800 MG PO Q6HR PRN for PAIN, #30 TAB 0 Refills Discontinued Medications: Doxycycline Hyclate (Doxycycline Hyclate) 100 Mg Cap 100 MG PO BID for Infection for 14 Days, #28 CAP 0 Refills Landon Price MD Jun 26, 2017 15:35
== END 2017-06-26 16:00 | disposition home or self-care (01) ==
LOC: NEPD 11:36 → NEDA 16:09 → NEPGCP 18:18
PROVIDERS: ADMIT Family Medicine; ATTEND Family Medicine
DX: S81.802D Unspecified open wound, left lower leg, subsequent encounter (principal); L03.90 Cellulitis, unspecified; N18.6 End stage renal disease; N17.9 Acute kidney failure, unspecified; B20 Human immunodeficiency virus [HIV] disease; L01.00 Impetigo, unspecified; E11.22 Type 2 diabetes mellitus with diabetic chronic kidney disease; E78.00 Pure hypercholesterolemia, unspecified; Z79.1 Long term (current) use of non-steroidal anti-inflammatories (NSAID); Z87.891 Personal history of nicotine dependence; Z99.2 Dependence on renal dialysis; Z88.2 Allergy status to sulfonamides
CPT/HCPCS: 80048; 80053; 81001; 82570; 84156; 84300; 85025; 87205; 96365; 96366; 96372; 96375; 99285; G0378; J1644; J1885; J2543; J3370; J3480; J7030; J7050